=== PATIENT | male | born 1980 | race Caucasian/White ===

== ENCOUNTER 2016-06-18 23:33 | Emergency (ER) | payer OTHER ==
[~2016-06-18] VITALS: Ht 180.3 cm; Wt 58.7 kg
[2016-06-19 01:27] VITALS: BP 112/78
[2016-06-19] MEDS ORDERED: ZOLPIDEM TARTRA10 MG PO (01:28)
[2016-06-19] MEDS ORDERED: CHLORDIAZEPOXID25 MG PO (01:28)
[2016-06-19] MEDS ORDERED: ESCITALOPRAM OX20 MG PO (01:29)
[2016-06-19] MEDS ORDERED: OXYCODONE HCL15 MG PO (01:29)
== END 2016-06-19 01:29 | disposition home or self-care (01) ==
LOC: EME 23:33 → RME 23:33
PROC: 0D20XUZ Change Feeding Device in Upper Intestinal Tract, External Approach (ICD-10-PCS; principal; 2016-06-18)
DX: K94.29 Other complications of gastrostomy (principal); F17.200 Nicotine dependence, unspecified, uncomplicated
CPT/HCPCS: 74000; 99281; 99283

== ENCOUNTER 2016-11-02 21:16 | Emergency (ER) | payer OTHER ==
[~2016-11-02] VITALS: Ht 177.8 cm; Wt 57.9 kg
[~2016-11-02 21:16] MED LIST: CHLORDIAZEPOXID25 MG PO; ESCITALOPRAM OX20 MG PO; OXYCODONE HCL15 MG PO; ZOLPIDEM TARTRA10 MG PO
[2016-11-02 22:52] VITALS: BP 110/66
== END 2016-11-02 22:53 | disposition home or self-care (01) ==
LOC: EME 21:16
PROC: 0D20XUZ Change Feeding Device in Upper Intestinal Tract, External Approach (ICD-10-PCS; principal; 2016-11-02)
DX: Z43.1 Encounter for attention to gastrostomy (principal); F17.200 Nicotine dependence, unspecified, uncomplicated
CPT/HCPCS: 99281; 99282

== ENCOUNTER 2017-01-11 19:06 | Emergency (ER) | payer OTHER ==
[~2017-01-11] VITALS: Ht 177.8 cm; Wt 59.4 kg
[2017-01-11 19:37] VITALS: BP 138/97
[2017-01-11 20:31] LABS: HEMATOCRIT 42.9 % (38.0-50.0); MCHC 33.1 G/DL (30.0-36.0); MCV 87.7 FL (86-99); MEAN PLAT.VOLUME 9.1 uM^3 (9.0-12.4); PLATELET COUNT 301 K/uL (156-360); RBC DIS.WIDTH-CV 15.2 % (11.8-14.6); RBC DIS.WIDTH-SD 48.8 % (39-53); RED BLOOD COUNT 4.89 M/uL (4.00-5.50); WHITE BLOOD COUNT 5.4 K/uL (4.1-10.2)
[2017-01-11 20:39] LABS: CHLORIDE 107 mEq/L (99-109); POTASSIUM 4.2 mEq/L (3.7-5.4); SODIUM 148 mEq/L (136-147)
[2017-01-11 20:41] LABS: GLUCOSE 101 mg/dL (70-99)
[2017-01-11 20:42] LABS: ANION GAP 13 MEQ/L (2-14)
[2017-01-11 20:45] LABS: GFR ESTIMATE (CALCULATED) > 59 mL/min/; UREA NITROGEN (BUN) 11 mg/dL (9-23)
== END 2017-01-11 22:30 | disposition left against medical advice (07) ==
LOC: EME 19:06
DX: R06.89 Other abnormalities of breathing (principal); R05 Cough; R68.83 Chills (without fever); Z53.21 Procedure and treatment not carried out due to patient leaving prior to being seen by health care provider
CPT/HCPCS: 71020; 80048; 85027